=== PATIENT | female | born 1975 | race Caucasian/White ===

== ENCOUNTER 2017-05-02 02:30 | Emergency (ER) | payer MEDICARE, BC ==
[~2017-05-02] VITALS: Ht 170.2 cm; Wt 137.5 kg
[~2017-05-02 02:30] MED LIST: ATEN-51 PO; CIPR500T4 PO; DULO20CA43 PO; FIORICET PO; HYDR-3498 PO; HYDR-762 PO; IBUP-1542 PO; IBUP800T25 PO; ONDA4TAB8 PO; SYN75 PO
[2017-05-02 02:33] VITALS: Ht 170.2 cm; Wt 137.5 kg
--- NOTE | 2017-05-02 04:31 | ERD ---
ER Documentation Chief Complaint Date/Time DATE: 05/02/17 TIME: 04:29 Chief Complaint Insect bites HPI Patient is a 41-year-old female with no medical problems who presents with "bug bites". The patient says that she was in [place] Wednesday through and noticed the bug bites on . She says they are itchy. They are on the bilateral lower extremities. She felt nausea today as well. She has no fevers. She tried Benadryl by mouth and putting alcohol on the lesions. Upon review of old medical records she has multiple visits to the ER since 2013. She said that her primary doctor is Dr. Arroyo in [place]. ROS All systems reviewed and are negative except as per history of present illness. Medications Home Meds Active Scripts Ondansetron Hcl* (Zofran*) 4 Mg Tablet, 4 MG PO Q6H for NAUSEA AND/OR VOMITING, #15 TAB Prov:CHANO GUZMÁN PA-C 03/13/16 Ibuprofen* (Motrin*) 600 Mg Tab, 600 MG PO Q6, #30 TAB Prov:CHANO GUZMÁN PA-C 03/13/16 Hydrocodone Bit-Acetaminophen* ([place]*) 10-325 Mg Tablet, 1 TAB PO Q6 Y for PAIN , #10 TAB Prov:CHANO GUZMÁN PA-C 03/13/16 Acetamin/Butalbital/Caffeine* (Fioricet*) 1 Tab Tab, 1 TAB PO Q4H Y for PAIN LEVEL 1-5, #15 TAB Prov:ZENA SANTANA PA-C 10/15/15 Hydrocodone Bit-Acetaminophen* ([place]*) 5-325 Mg Tab, 1 TAB PO Q6 Y for PAIN, # 7 TAB Prov:VONDA MCNALLYC 08/23/15 Ibuprofen* (Motrin*) 800 Mg Tab, 800 MG PO Q6H Y for PAIN AND OR ELEVATED TEMP, #30 TAB Prov:CATHY AMBROSE NP 08/23/15 Hydrocodone Bit-Acetaminophen* ([place]*) 5-325 Mg Tab, 1 TAB PO Q6 Y for PAIN, # 20 TAB Prov:JESSICA SILVA NP 07/24/15 Ciprofloxacin Hcl* (Ciprofloxacin Hcl*) 500 Mg Tablet, 500 MG PO BID for 7 Days , TAB Prov:JESSICA SILVA TORREZ TChristiane GONGORA 07/24/15 Ibuprofen* (Ibuprofen*) 800 Mg Tab, 800 MG PO Q6H Y for PAIN, #30 TAB Prov:CARMEN CHARLES PA-C 05/23/15 Hydrocodone Bit-Acetaminophen* ([place]*) 5-325 Mg Tab, 1 TAB PO Q4H Y for PAIN, # 20 TAB Prov:CARMEN CHARLES PA-C 05/23/15 Reported Medications Atenolol* (Atenolol*) Unknown Strength Tablet, PO DAILY, TAB 07/24/15 Levothyroxine Sodium* (Synthroid*) Unknown Strength Tablet, PO AC BREAKFAST, TAB 07/24/15 Duloxetine Hcl* (Cymbalta*) Unknown Strength Capsule.dr, PO DAILY, CAP 07/24/15 Allergies Allergies: Coded Allergies: Penicillins (Verified Allergy, Unknown, rash, 05/20/14) clindamycin (Verified Allergy, Unknown, rash, 05/20/14) PMhx/Soc Medical and Surgical Hx: pt denies Medical Hx, pt denies Surgical Hx History of Surgery: Yes (cholecystectomy, gastric bypass) Anesthesia Reaction: No Hx Neurological Disorder: No Hx Respiratory Disorders: No Hx Cardiac Disorders: Yes (htn) Hx Psychiatric Problems: Yes (depression) Hx Miscellaneous Medical Probl: Yes (hypothyroid) Hx Alcohol Use: No Hx Substance Use: No Hx Tobacco Use: No Smoking Status: Never smoker FmHx Family History: diabetes Physical Exam Vitals Vital Signs Date Time Temp Pulse Resp B/P Pulse Ox O2 Delivery O2 Flow Rate FiO2 05/02/17 02:33 98.9 85 20 127/81 97 Physical Exam Const: No acute distress Head: Atraumatic Eyes: Normal Conjunctiva ENT: Normal External Ears, Nose and Mouth. Neck: Full range of motion..~ No meningismus. Resp: Clear to auscultation bilaterally Cardio: Regular rate and rhythm, no murmurs Abd: Soft, non tender, non distended. Normal bowel sounds Skin: 0.5 x 0.5 cm lesions to the lower extremities bilaterally with erythema and blanching, consistent with bug bites Back: No midline or flank tenderness Ext: No cyanosis, or edema Neur: Awake and alert Psych: Normal Mood and Affect Procedures/MDM Patient is a 41-year-old female with no medical problems who presents with bug bites to the lower extremities bilaterally. They appear to be mosquito bites. The patient will be given a prescription for hydrocortisone cream. I do not believe she requires further workup or admission the hospital at this time. There is no sign of infection. The patient can return for any worsening symptoms. She should follow-up with her primary doctor within 1 week. Departure Diagnosis: Primary Impression: Bug bites Encounter type: initial encounter Qualified Code: W57.XXXA - Bug bite, initial encounter Condition: Fair Patient Instructions: Insect Bites and Stings Referrals: Dr. Arroyo Additional Instructions: Call your primary care doctor TOMORROW for an appointment during the next 1 WEEK.Tell the nitro worker that you were referred from this facility.See the doctor sooner or return here if your condition worsens before your appointment time. ROSELYN ANDREWS MD May 02, 2017 04:31
== END 2017-05-02 03:30 | disposition home or self-care (01) ==
LOC: FTE 02:30
DX: S80.861A Insect bite (nonvenomous), right lower leg, initial encounter (principal); S80.862A Insect bite (nonvenomous), left lower leg, initial encounter; E03.9 Hypothyroidism, unspecified; I10 Essential (primary) hypertension; W57.XXXA Bitten or stung by nonvenomous insect and other nonvenomous arthropods, initial encounter; Y92.9 Unspecified place or not applicable
CPT/HCPCS: 99282

== ENCOUNTER 2017-05-24 11:19 | Emergency (ER) | payer MEDICARE, BC ==
[~2017-05-24] VITALS: Ht 152.4 cm; Wt 180.0 kg
[2017-05-24 11:21] VITALS: Ht 152.4 cm; Wt 180.0 kg
[2017-05-24] MEDS ORDERED: KET2CR15 TOP (11:41)
[2017-05-24] MEDS ORDERED: SULF1TAB31 PO (11:41)
--- NOTE | 2017-05-24 12:52 | ERD ---
ER Documentation Chief Complaint Date/Time DATE: 05/24/17 TIME: 12:51 Chief Complaint possible small abd abcess HPI 41-year-old female presents with a lesion on her left abdominal wall for the past 3 months. Patient states that it is starting to hurt rating at 4 out of 10. Denies any fevers. ROS All systems reviewed and are negative except as per history of present illness. Medications Home Meds Active Scripts Ketoconazole* (Ketoconazole* 2% Cream (15gm)) 1 Applic Cr, 1 APPLIC TOP BID for 7 Days, TUB Prov:VONDA MCNALLY PA-C 05/24/17 Sulfamethoxazole/Trimethoprim* (Bactrim Ds* Tablet) 1 Each Tablet, 1 TAB PO BID , #14 TAB Prov:VONDA MCNALLY PA-C 05/24/17 Ondansetron Hcl* (Zofran*) 4 Mg Tablet, 4 MG PO Q6H for NAUSEA AND/OR VOMITING, #15 TAB Prov:CHANO GUZMÁN PA-C 03/13/16 Ibuprofen* (Motrin*) 600 Mg Tab, 600 MG PO Q6, #30 TAB Prov:CHANO GUZMÁN PA-C 03/13/16 Hydrocodone Bit-Acetaminophen* ([place]*) 10-325 Mg Tablet, 1 TAB PO Q6 Y for PAIN , #10 TAB Prov:CHANO GUZMÁNC 03/13/16 Acetamin/Butalbital/Caffeine* (Fioricet*) 1 Tab Tab, 1 TAB PO Q4H Y for PAIN LEVEL 1-5, #15 TAB Prov:ZENA SANTANA PA-C 10/15/15 Hydrocodone Bit-Acetaminophen* ([place]*) 5-325 Mg Tab, 1 TAB PO Q6 Y for PAIN, # 7 TAB Prov:VONDA MCNALLY PA-C 08/23/15 Ibuprofen* (Motrin*) 800 Mg Tab, 800 MG PO Q6H Y for PAIN AND OR ELEVATED TEMP, #30 TAB Prov:CATHY AMBROSE NP 08/23/15 Hydrocodone Bit-Acetaminophen* ([place]*) 5-325 Mg Tab, 1 TAB PO Q6 Y for PAIN, # 20 TAB Prov:JESSICA SILVA [employer]. [employer] 07/24/15 Ciprofloxacin Hcl* (Ciprofloxacin Hcl*) 500 Mg Tablet, 500 MG PO BID for 7 Days , TAB Prov:JESSICA SILVA SHAN [place] [employer] 07/24/15 Ibuprofen* (Ibuprofen*) 800 Mg Tab, 800 MG PO Q6H Y for PAIN, #30 TAB Prov:CARMEN CHARLES PA-C 05/23/15 Hydrocodone Bit-Acetaminophen* ([place]*) 5-325 Mg Tab, 1 TAB PO Q4H Y for PAIN, # 20 TAB Prov:CARMEN CHARLES PA-C 05/23/15 Reported Medications Atenolol* (Atenolol*) Unknown Strength Tablet, PO DAILY, TAB 07/24/15 Levothyroxine Sodium* (Synthroid*) Unknown Strength Tablet, PO AC BREAKFAST, TAB 07/24/15 Duloxetine Hcl* (Cymbalta*) Unknown Strength Capsule.dr, PO DAILY, CAP 07/24/15 Allergies Allergies: Coded Allergies: Penicillins (Verified Allergy, Unknown, rash, 05/20/14) clindamycin (Verified Allergy, Unknown, rash, 05/20/14) PMhx/Soc History of Surgery: No Anesthesia Reaction: No Hx Neurological Disorder: No Hx Respiratory Disorders: No Hx Cardiac Disorders: No Hx Psychiatric Problems: No Hx Miscellaneous Medical Probl: No Hx Alcohol Use: No Hx Substance Use: No Hx Tobacco Use: No Smoking Status: Never smoker Physical Exam Vitals Vital Signs Date Time Temp Pulse Resp B/P Pulse Ox O2 Delivery O2 Flow Rate FiO2 05/24/17 11:21 98.1 90 18 128/83 99 Physical Exam Const: WD.WN Head: Atraumatic Eyes: Normal Conjunctiva ENT: Normal External Ears, Nose and Mouth. Neck: Full range of motion..~ No meningismus. Resp: Clear to auscultation bilaterally Cardio: Regular rate and rhythm, no murmurs Abd: Soft, non tender, non distended. Normal bowel sounds Skin: Erythematous lesion on the left quadrant there is no evidence of induration, warmth or Back: No midline or flank tenderness Ext: No cyanosis, or edema Neur: Awake and alert Psych: Normal Mood and Affect Procedures/MDM 41-year-old female presents to the emergency department with a skin lesion there was no evidence of abscess or cellulitis. Patient was given instructions to follow-up with a junior recruiter. Discussed return to the ER for worsening symptoms. She understands and agrees this plan Departure Diagnosis: Primary Impression: Skin lesion Condition: Stable Patient Instructions: Fungal Infection, Skin [General] Additional Instructions: FOLLOW UP WITH YOUR PRIMARY CARE PHYSICIAN TOMORROW.Return to this facility if you are not improving as expected. Take all medicines as directed. Return to this facility if you are not improving as expected. VONDA MCNALLY PA-C May 24, 2017 12:52
== END 2017-05-24 12:07 | disposition home or self-care (01) ==
LOC: FTE 11:19
DX: L98.9 Disorder of the skin and subcutaneous tissue, unspecified (principal)
CPT/HCPCS: 99283

== ENCOUNTER 2017-07-03 03:45 | Emergency (ER) | payer MEDICARE, BC ==
[~2017-07-03] VITALS: Ht 170.2 cm; Wt 133.0 kg
[~2017-07-03 03:45] MED LIST changes: +KET2CR15 TOP; +SULF1TAB31 PO
[2017-07-03 03:48] VITALS: Ht 170.2 cm; Wt 133.0 kg
[2017-07-03] MEDS ORDERED: ONDANSETRON 4 MG INJ IV STA (04:24)
[2017-07-03] MEDS ORDERED: SOD CHLORIDE 0.9% 1,000 ML IV STA (04:24)
[2017-07-03] MEDS ORDERED: LORAZEPAM 0.5 MG TAB PO ONE (04:30)
[2017-07-03 04:43] LABS: URINE BLOOD (Dip) POC Negative (NEGATIVE)
[2017-07-03 05:14] LABS: BASOPHILS % 0.2 % (0.0-2.0); EOSINOPHILS % 0.4 % (0.0-7.0); HEMATOCRIT 39.8 % (37.0-47.0); HEMOGLOBIN 11.7 g/dl (12.0-16.0); MEAN CORPUSCULAR HEMOGLOBIN 23.9 pg (29.0-33.0); MEAN CORPUSCULAR HGB CONC 29.4 g/dl (32.0-37.0); MEAN CORPUSCULAR VOLUME 81.2 fl (82.0-101.0); MEAN PLATELET VOLUME 11.1 fl (7.4-10.4); MONOCYTE # 0.7 10^3/ul (0.3-0.9); MONOCYTES % 6.6 % (0.0-11.0); NEUTROPHIL # 8.3 10^3/ul (1.6-7.5); NEUTROPHILS % 74.4 % (39.0-77.0); PLATELET COUNT 401 10^3/UL (140-415); RED CELL DISTRIBUTION WIDTH 15.9 % (11.5-14.5); WHITE BLOOD COUNT 11.2 10^3/ul (4.8-10.8)
[2017-07-03 05:37] LABS: ALANINE AMINOTRANSFERASE 31 IU/L (13-69); ALBUMIN 3.8 g/dl (3.3-4.9); ALBUMIN/GLOBULIN RATIO 0.92; ALKALINE PHOSPHATASE 144 IU/L (42-121); ANION GAP 13 (8-16); ASPARTATE AMINO TRANSFERASE 21 IU/L (15-46); BILIRUBIN,INDIRECT 0.1 mg/dl (0-1.1); BILIRUBIN,TOTAL 0.1 mg/dl (0.2-1.3); BLOOD UREA NITROGEN 17 mg/dl (7-20); CALCIUM 9.4 mg/dl (8.4-10.2); CARBON DIOXIDE 25 mmol/L (21-31); CHLORIDE 109 mmol/L (97-110); CREATININE 0.83 mg/dl (0.44-1.00); GLUCOSE 96 mg/dl (70-220); POTASSIUM 4.2 mmol/L (3.5-5.1); SODIUM 143 mmol/L (135-144); TOTAL PROTEIN 7.9 g/dl (6.1-8.1)
[2017-07-03] MEDS ORDERED: LORA-441 PO (05:49)
--- NOTE | 2017-07-03 05:56 | ERD ---
ER Documentation Chief Complaint Chief Complaint dizziness, nausea HPI 42-year-old woman complains of dizziness for a few hours, as well as anxiety. She states she has a history of anxiety and has felt like this in the past. She denies fevers or chills, no chest pain or shortness of breath, no headache or blurry vision. Patient denies dysuria. ROS All systems reviewed and are negative except as per history of present illness. Medications Home Meds Active Scripts Lorazepam* (Ativan*) 0.5 Mg Tablet, 0.5 MG PO Q8 for ANXIETY, #10 TAB Prov:DERIAN BLACKWOOD MD 07/03/17 Ketoconazole* (Ketoconazole* 2% Cream (15gm)) 1 Applic Cr, 1 APPLIC TOP BID for 7 Days, TUB Prov:VONDA MCNALLY PA-C 05/24/17 Sulfamethoxazole/Trimethoprim* (Bactrim Ds* Tablet) 1 Each Tablet, 1 TAB PO BID , #14 TAB Prov:VONDA MCNALLY PA-C 05/24/17 Ondansetron Hcl* (Zofran*) 4 Mg Tablet, 4 MG PO Q6H for NAUSEA AND/OR VOMITING, #15 TAB Prov:CHANO GUZMÁN PA-C 03/13/16 Ibuprofen* (Motrin*) 600 Mg Tab, 600 MG PO Q6, #30 TAB Prov:CHANO GUZMÁN PA-C 03/13/16 Hydrocodone Bit-Acetaminophen* ([place]*) 10-325 Mg Tablet, 1 TAB PO Q6 Y for PAIN , #10 TAB Prov:CHANO GUZMÁN PA-C 03/13/16 Acetamin/Butalbital/Caffeine* (Fioricet*) 1 Tab Tab, 1 TAB PO Q4H Y for PAIN LEVEL 1-5, #15 TAB Prov:ZENA SANTANA PA-C 10/15/15 Hydrocodone Bit-Acetaminophen* ([place]*) 5-325 Mg Tab, 1 TAB PO Q6 Y for PAIN, # 7 TAB Prov:VODNA MCNALLY PA-C 08/23/15 Ibuprofen* (Motrin*) 800 Mg Tab, 800 MG PO Q6H Y for PAIN AND OR ELEVATED TEMP, #30 TAB Prov:HALIECATHY X. TRIGONOMETRY TUTOR 08/23/15 Hydrocodone Bit-Acetaminophen* ([place]*) 5-325 Mg Tab, 1 TAB PO Q6 Y for PAIN, # 20 TAB Prov:JESSICA SILVA TRIGONOMETRY TUTOR 07/24/15 Ciprofloxacin Hcl* (Ciprofloxacin Hcl*) 500 Mg Tablet, 500 MG PO BID for 7 Days , TAB Prov:JESSICA SILVA TRIGONOMETRY TUTOR 07/24/15 Ibuprofen* (Ibuprofen*) 800 Mg Tab, 800 MG PO Q6H Y for PAIN, #30 TAB Prov:CARMEN CHARLES PA-C 05/23/15 Hydrocodone Bit-Acetaminophen* ([place]*) 5-325 Mg Tab, 1 TAB PO Q4H Y for PAIN, # 20 TAB Prov:CARMEN CHRALES PA-C 05/23/15 Reported Medications Atenolol* (Atenolol*) Unknown Strength Tablet, PO DAILY, TAB 07/24/15 Levothyroxine Sodium* (Synthroid*) Unknown Strength Tablet, PO AC BREAKFAST, TAB 07/24/15 Duloxetine Hcl* (Cymbalta*) Unknown Strength Capsule.dr, PO DAILY, CAP 07/24/15 Allergies Allergies: Coded Allergies: Penicillins (Verified Allergy, Unknown, rash, 05/20/14) clindamycin (Verified Allergy, Unknown, rash, 05/20/14) PMhx/Soc Anxiety History of Surgery: Yes (gastric bypass, gallbladder) Anesthesia Reaction: No Hx Neurological Disorder: No Hx Respiratory Disorders: No Hx Cardiac Disorders: No Hx Psychiatric Problems: No Hx Miscellaneous Medical Probl: Yes (hypothyroidism) Hx Alcohol Use: No Hx Substance Use: No Hx Tobacco Use: No Smoking Status: Never smoker FmHx Family History: No diabetes Physical Exam Vitals Vital Signs Date Time Temp Pulse Resp B/P Pulse Ox O2 Delivery O2 Flow Rate FiO2 07/03/17 05:25 98.0 86 18 127/72 100 Room Air 07/03/17 03:48 98.8 99 20 127/76 100 Physical Exam GENERAL: Well-developed, well-nourished, well-hydrated, appears anxious HEENT: Moist mucous membranes, pink conjunctiva, no cervical spine tenderness or step-off deformities, no goiter, no jaundice or icterus, extraocular movements intact without pain. No submandibular induration, and no pharyngeal erythema NEURO: Alert and oriented 3, cranial nerves II through XII intact bilaterally, pupils equal round reactive to light, no focal deficits or facial asymmetry, sensation intact distally Strength 5/5 in upper and lower extremities bilaterally CARDIAC: Tachycardic and regular no murmurs rubs or gallops LUNGS: Clear bilaterally no wheezing crackles or stridor ABDOMEN: Soft nontender, no guarding, no rigidity, no rebound, no psoas sign no obturator sign. Normoactive bowel sounds SKIN: Warm and dry to touch, no abrasions, contusions, or hematomas, no lacerations, no ecchymosis, no target lesions, and without ulcers EXTREMITIES: No clubbing cyanosis or edema, calves are bilaterally symmetrical, no Homans sign, no popliteal cord sign. Distal pulses equal and bilateral PSYCH: Anxious Result Diagram: 07/03/17 0435 Results 24 hrs Laboratory Tests Test 07/03/17 04:35 07/03/17 04:40 White Blood Count 11.210^3/ul Red Blood Count 4.9010^6/ul Hemoglobin 11.7g/dl Hematocrit 39.8% Mean Corpuscular Volume 81.2fl Mean Corpuscular Hemoglobin 23.9pg Mean Corpuscular Hemoglobin Concent 29.4g/dl Red Cell Distribution Width 15.9% Platelet Count 62929^3/UL Mean Platelet Volume 11.1fl Neutrophils % 74.4% Lymphocytes % 18.0% Monocytes % 6.6% Eosinophils % 0.4% Basophils % 0.2% Nucleated Red Blood Cells % 0.0/100WBC Neutrophils # 8.310^3/ul Lymphocytes # 2.010^3/ul Monocytes # 0.710^3/ul Eosinophils # 0.010^3/ul Basophils # 0.010^3/ul Nucleated Red Blood Cells # 0.010^3/ul Bedside Urine pH (LAB) 6.0 Bedside Urine Protein (LAB) Trace Bedside Urine Glucose (UA) Negative Bedside Urine Ketones (LAB) Negative Bedside Urine Blood Negative Bedside Urine Nitrite (LAB) Negative Bedside Urine Leukocyte Esterase (L Negative Current Medications Medications (Trade) Dose Ordered Sig/Lyssa Route PRN Reason Start Time Stop Time Status Last Admin Dose Admin Sodium Chloride (NS) 1,000 ml @ 1,000 mls/hr Q1H STAT IV 07/03/17 04:24 07/03/17 05:23 DC 07/03/17 04:39 Ondansetron HCl (Zofran Inj) 4 mg ONCE STAT IV 07/03/17 04:24 07/03/17 04:26 DC 07/03/17 04:40 Lorazepam (Ativan) 0.5 mg ONCE ONCE PO 07/03/17 04:30 07/03/17 04:31 DC 07/03/17 04:40 Procedures/MDM IV line was established patient was placed on cardiac cath rn rhythm strip revealed a sinus tachycardia at 110 bpm with upright P and T waves. Patient was afebrile I administered 1 L normal saline intravenously, Zofran 4 mg IV, and lorazepam 0.5 mg p.o. with good effect. EKG performed, read by me: 89 bpm, normal sinus rhythm, normal axis, no acute ST segment changes, narrow QRS complex, with good R-wave progression in precordial leads. CBC and electrolytes were normal, liver function tests normal, troponin negative. test was negative and urine analysis was negative for infection. Differential diagnoses considered, included but not limited to acute coronary syndrome, pulmonary embolism, aortic dissection, abdominal aortic aneurysm, sepsis, stroke, meningitis, encephalitis, pneumonia, appendicitis, cholecystitis , bowel obstruction, pyelonephritis, nephrolithiasis, cystitis, as well as metabolic, hematologic, and electrolyte abnormalities. As well as abscess, cellulitis, fractures, and dislocations. Patient feels much better at this time, and vital signs are normal, symptoms have improved. I did give strict instructions to return to the ED if symptoms continue or worsen, patient will otherwise follow-up with primary care physician. Patient understood instructions and agreed to plan. Disclaimer: Inadvertent spelling and grammatical errors are likely due to EHR/ dictation software use and do not reflect on the overall quality of patient care. Also, please note that the electronic time recorded on this note does not necessarily reflect the actual time of the patient encounter. Departure Diagnosis: Primary Impression: Dizziness Additional Impression: Acute anxiety Condition: Good Patient Instructions: Dizziness, Unk Cause DERIAN BLACKWOOD MD Jul 03, 2017 05:56
[2017-07-03 05:57] LABS: TROPONIN-I < 0.012 ng/ml (0.00-0.12)
[2017-07-03 06:20] VITALS: BP 130/85; RESP 16; TEMP 98.1
[2017-07-03 06:21] VITALS: PULSE 89
[2017-07-03] MEDS ORDERED: ERGO2000 PO (06:31)
[2017-07-03] MEDS ORDERED: LEVO150T67 PO (06:31)
== END 2017-07-03 06:22 | disposition home or self-care (01) ==
LOC: E/R 03:45
DX: F41.9 Anxiety disorder, unspecified (principal); E03.9 Hypothyroidism, unspecified; R40.2142 Coma scale, eyes open, spontaneous, at arrival to emergency department; R40.2252 Coma scale, best verbal response, oriented, at arrival to emergency department; R40.2362 Coma scale, best motor response, obeys commands, at arrival to emergency department
CPT/HCPCS: 36415; 80053; 81003; 83690; 84484; 85025; 93005; 96361; 96374; 96375; 99284; J2405; J7030

== ENCOUNTER 2017-07-11 22:48 | Emergency (ER) | payer MEDICARE, BC ==
[~2017-07-11] VITALS: Ht 170.2 cm; Wt 134.7 kg
[~2017-07-11 22:48] MED LIST changes: -ATEN-51 PO; -CIPR500T4 PO; -DULO20CA43 PO; +ERGO2000 PO; -FIORICET PO; -HYDR-3498 PO; -HYDR-762 PO; -IBUP-1542 PO; -IBUP800T25 PO; -KET2CR15 TOP; +LEVO150T67 PO; +LORA-441 PO; -ONDA4TAB8 PO; -SULF1TAB31 PO; -SYN75 PO
[2017-07-11 22:52] VITALS: Ht 170.2 cm; Wt 134.7 kg
[2017-07-11] MEDS ORDERED: ONDANSETRON 4 MG INJ IV STA (23:04)
[2017-07-11] MEDS ORDERED: SOD CHLORIDE 0.9% 1,000 ML IV STA (23:04)
[2017-07-11] MEDS ORDERED: HYDROmorphONE 0.5 MG/0.5 ML SYG IV STA (23:04)
--- NOTE | 2017-07-11 23:48 | ERD ---
ER Documentation Chief Complaint Chief Complaint right upper back pain radiating to right chest x 4 days HPI This is a 42-year-old female who is an employee of [employer] cystectomy and gastric bypass presenting to the emergency department complaining of thoracic back pain that radiates to her epigastric region for the past 4 days. Rates the pain 7 out of 10, increased to she eats meals. She associates it with nausea. Patient denies any fevers, vomiting, diarrhea. ROS All systems reviewed and are negative except as per history of present illness. Medications Home Meds Active Scripts Ondansetron (Ondansetron Odt) 4 Mg Tab.rapdis, 8 MG PO Q6H Y for NAUSEA AND/OR VOMITING, #30 TAB Prov:VONDA MCNALLY PA-C 07/12/17 Hydrocodone/Acetaminophen ([place] 5-325 Tablet) 1 Each Tablet, 1 TAB PO Q6H Y for PAIN, #30 TAB Prov:VONDA MCNALLY PA-C 07/12/17 Famotidine* (Pepcid*) 20 Mg Tablet, 20 MG PO DAILY, #20 TAB Prov:VONDA MCNALLY PA-C 07/12/17 Hydrocodone/Acetaminophen ([place] 5-325 Tablet) 1 Each Tablet, 1 TAB PO Q6H Y for PAIN, #20 TAB Prov:VONDA MCNALLY PA-C 07/12/17 Lorazepam* (Ativan*) 0.5 Mg Tablet, 0.5 MG PO Q8 for ANXIETY, #10 TAB Prov:DERIAN BLACKWOOD MD 07/03/17 Reported Medications Ergocalciferol (Vitamin D2) (VITAMIN D2) 2,000 Unit Tablet, 2000 UNIT PO, TAB 07/03/17 Levothyroxine Sodium* (Levothyroxine Sodium*) 150 Mcg Tablet, 300 MCG PO BEFORE BREAKFAST, #30 TAB 07/03/17 Allergies Allergies: Coded Allergies: Penicillins (Unverified Allergy, Unknown, rash, 07/03/17) clindamycin (Unverified Allergy, Unknown, rash, 07/03/17) PMhx/Soc History of Surgery: Yes (gastric bypass, gallbladder) Anesthesia Reaction: No Hx Neurological Disorder: No Hx Respiratory Disorders: No Hx Cardiac Disorders: No Hx Psychiatric Problems: No Hx Miscellaneous Medical Probl: Yes (hypothyroidism) Hx Alcohol Use: No Hx Substance Use: No Hx Tobacco Use: No Smoking Status: Never smoker Physical Exam Vitals Vital Signs Date Time Temp Pulse Resp B/P Pulse Ox O2 Delivery O2 Flow Rate FiO2 07/11/17 22:52 99.1 96 20 174/81 99 Physical Exam GENERAL: well-developed/well-nourished, in no apparent distress, non-toxic appearing HENT: NC/AT, moist mucous membranes EYES: Conjunctiva normal NECK: Supple, no lymphadenopathy PULM: CTA bilaterally, no rales, rhonchi, or wheezing heard CV: Normal S1S2, RRR, good capillary refill GI: Soft, non-distended, tender to palpation epigastric Normal bowel sounds, no masses or organomegaly felt on exam No gross peritonitis, no bruits Negative Rovsing, negative [place], negative McBurney's point, Negative CVAT BACK: No masses EXT: No clubbing, cyanosis, or edema NEURO: Alert and Orientated SKIN: Intact, normal turgor PSYCH: Normal mood and mentation Result Diagram: 07/11/17 2340 07/11/17 2340 Results 24 hrs Laboratory Tests Test 07/11/17 23:40 White Blood Count 6.710^3/ul Red Blood Count 4.3210^6/ul Hemoglobin 10.4g/dl Hematocrit 35.2% Mean Corpuscular Volume 81.5fl Mean Corpuscular Hemoglobin 24.1pg Mean Corpuscular Hemoglobin Concent 29.5g/dl Red Cell Distribution Width 15.8% Platelet Count 51031^3/UL Mean Platelet Volume 11.2fl Neutrophils % 56.8% Lymphocytes % 33.6% Monocytes % 7.9% Eosinophils % 1.3% Basophils % 0.3% Nucleated Red Blood Cells % 0.0/100WBC Neutrophils # 3.810^3/ul Lymphocytes # 2.210^3/ul Monocytes # 0.510^3/ul Eosinophils # 0.110^3/ul Basophils # 0.010^3/ul Nucleated Red Blood Cells # 0.010^3/ul Prothrombin Time 12.9Sec Prothrombin Time Ratio 1.0 INR International Normalized Ratio 0.97 Activated Partial Thromboplast Time 28.1Sec Urine Color YELLOW Urine Clarity CLEAR Urine pH 5.0 Urine Specific [place] 1.021 Urine Ketones NEGATIVEmg/dL Urine Nitrite NEGATIVEmg/dL Urine Bilirubin NEGATIVEmg/dL Urine Urobilinogen 2+mg/dL Urine Leukocyte Esterase NEGATIVELeu/ul Urine Hemoglobin NEGATIVEmg/dL Urine Glucose NEGATIVEmg/dL Urine Total Protein NEGATIVEmg/dl Sodium Level 144mmol/L Potassium Level 4.3mmol/L Chloride Level 112mmol/L Carbon Dioxide Level 26mmol/L Anion Gap 10 Blood Urea Nitrogen 12mg/dl Creatinine 0.88mg/dl Glucose Level 89mg/dl Calcium Level 8.8mg/dl Total Bilirubin 0.2mg/dl Direct Bilirubin 0.00mg/dl Indirect Bilirubin 0.2mg/dl Aspartate Amino Transf (AST/SGOT) 16IU/L Alanine Aminotransferase (ALT/SGPT) 25IU/L Alkaline Phosphatase 115IU/L Troponin I Pending Total Protein 6.8g/dl Albumin 3.3g/dl Globulin 3.50g/dl Albumin/Globulin Ratio 0.94 Lipase 130U/L Current Medications Medications (Trade) Dose Ordered Sig/Lyssa Route PRN Reason Start Time Stop Time Status Last Admin Dose Admin Sodium Chloride (NS) 1,000 ml @ 1,000 mls/hr Q1H STAT IV 07/11/17 23:04 07/12/17 00:03 DC 07/11/17 23:56 Ondansetron HCl (Zofran Inj) 4 mg ONCE STAT IV 07/11/17 23:04 07/11/17 23:07 DC 07/11/17 23:56 Hydromorphone HCl (Dilaudid) 0.5 mg ONCE STAT IV 07/11/17 23:04 07/11/17 23:07 DC 07/11/17 23:56 Procedures/MDM This is a 42-year-old female who is an employee of [employer] cystectomy and gastric bypass presenting to the emergency department complaining of thoracic back pain that radiates to her epigastric region for the past 4 days. Likely gastritis, thoracic strain. No evidence of acute abdomen. In the ED, patient was given 1 L of fluids, Dilaudid and Zofran. I have reassessed her and she feels better patient is stable to be discharged home to follow-up with her primary care physician. Discussed return to the ER for any worsening signs or symptoms patient understands and agrees with plan CT abd & pelvis without contrast: 1. Status post Robinson-en-Y gastric bypass without evidence of complications. Bowel loops are decompressed. Normal appendix. 2. Hypodense lesions in the liver and spleen are unchanged since CT July. They are incompletely characterized on noncontrast CT. However, stability in size favors benign lesions. Abd US: 1. Status post cholecystectomy. Negative for evidence of biliary obstruction. 2. Hypodense liver lesion seen on same day CT is not seen with ultrasound that is likely technical. EKG: read and signed off by myself and Rate/Rhythm: Normal Sinus Rhythm 76bpm QRS, ST, T-waves: No changes consistent w/ acute ischemia Impression: No evidence of ischemia or arrhythmia Departure Diagnosis: Primary Impression: Epigastric pain Additional Impression: Thoracic myofascial strain Condition: Stable VONDA MCNALLY PA-C Jul 11, 2017 23:48
--- NOTE | 2017-07-12 00:36 | RADRPT ---
PROCEDURE: CT ABDOMEN AND PELVIS WITHOUT CONTRAST CLINICAL INDICATION: 42 years of age, female . Abdominal pain. TECHNIQUE: CT of the abdomen and pelvis was performed without intravenous contrast. Oral contrast wa s not administered prior to the examination. Coronal and sagittal reformatted images were obtained from the axial source images. Images were revi ewed on a high-resolution PACS workstation. Dose information: Based on a 32 cm phantom, the estimated radiation dose (CTDIvol mGy) for each seri es in this exam is 23. The estimated cumulative dose (DLP mGy-cm) is 1454. One or more of the following dose reduction techniques were used: - Automated exposure control. - Adjustment of the mA and/or kV according to patient size. - Use of iterative reconstruction technique. COMPARISON: July 24, 2015 FINDINGS: In the absence of intravenous contrast, the study constitutes a limited assessment of the solid orga ns, bowel and vessels. LUNG BASES: Normal noncontrast appearance. ABDOMEN/PELVIS: Liver: There is a 2.4 cm hypodense lesion in the inferior right lobe segment 6 that is unchanged fro m July 14, 2015 and likely benign (/). It is incompletely characterized on noncontrast CT. Rig ht hepatic lobe is long and measures 20 cm that is unchanged and may be due to Katerina's lobe. Gallbladder: Status post cholecystectomy. Bile ducts: No intrahepatic or extrahepatic biliary duct dilatation. Spleen: 3.7 cm hypodense lesion in the superior spleen is unchanged from July 24, 2015 and likel y benign. Spleen is normal size with multiple accessory spleens. Pancreas: Normal noncontrast appearance. Adrenal glands: Normal noncontrast appearance. Kidneys and ureters: Normal noncontrast appearance. Negative for urinary calculi or hydronephrosis. Aorta and IVC: Normal noncontrast appearance. Lymph nodes: Normal noncontrast appearance. Gastrointestinal tract: Status post ante colic Robinson-en-Y gastric bypass with the expected appearance . Negative for evidence of complications. JJ anastomosis is in the left mid abdomen. Appendix: Normal Bladder: Normal noncontrast appearance. Pelvic Organs: The uterus and adnexa are unremarkable. Peritoneal cavity: No free fluid or free intraperitoneal air. Abdominal wall: Normal noncontrast appearance. BONES: Musculoskeletal: Mild degenerative changes in spine. Scattered benign hemangiomas in the spine. No s uspicious bone lesions. IMPRESSION: 1. Status post Robinson-en-Y gastric bypass without evidence of complications. Bowel loops are decompre ssed. Normal appendix. 2. Hypodense lesions in the liver and spleen are unchanged since CT July 24, 2015. They are inco mpletely characterized on noncontrast CT. However, stability in size favors benign lesions. RPTAT: HCTS Valdez Gleason Physician Date Time Electronically viewed and signed by Valdez Gleason Physician on 07/12/2017 00:36 CS/
--- NOTE | 2017-07-12 00:39 | RADRPT ---
PROCEDURE: LIMITED ABDOMINAL ULTRASOUND OF GALL BLADDER CLINICAL INDICATION: 42 years of age, female. Right upper quadrant pain. TECHNIQUE: Multiple real-time longitudinal and transverse images of the gallbladder and the bile d ucts were acquired utilizing a curved array transducer. Images were reviewed on a high-resolution [facility] workstation. COMPARISON: CT abdomen and pelvis from the same day. FINDINGS: Pancreas: Visualized portions normal. Pancreatic tail is obscured by bowel gas. Liver appearance: Normal. Liver lesion seen on CT is not seen with ultrasound. Liver length: 19 cm Bile Ducts: No intrahepatic or extrahepatic biliary ductal dilatation. CBD: 0.47 cm. Gallbladder: Surgically absent. Main portal vein is patent with hepatopetal flow. Right kidney length: 10.1 cm. Right kidney appearance: Normal. Other: None. IMPRESSION: 1. Status post cholecystectomy. Negative for evidence of biliary obstruction. 2. Hypodense liver lesion seen on same day CT is not seen with ultrasound that is likely technical. RPTAT: HCTS Physician Gordy Date Time Electronically viewed and signed by Physician Gordy on 07/12/2017 00:39 /
--- NOTE | 2017-07-12 00:39 | RADRPT ---
PROCEDURE: LIMITED ABDOMINAL ULTRASOUND OF GALL BLADDER CLINICAL INDICATION: 42 years of age, female. Right upper quadrant pain. TECHNIQUE: Multiple real-time longitudinal and transverse images of the gallbladder and the bile d ucts were acquired utilizing a curved array transducer. Images were reviewed on a high-resolution [facility] workstation. COMPARISON: CT abdomen and pelvis from the same day. FINDINGS: Pancreas: Visualized portions normal. Pancreatic tail is obscured by bowel gas. Liver appearance: Normal. Liver lesion seen on CT is not seen with ultrasound. Liver length: 19 cm Bile Ducts: No intrahepatic or extrahepatic biliary ductal dilatation. CBD: 0.47 cm. Gallbladder: Surgically absent. Main portal vein is patent with hepatopetal flow. Right kidney length: 10.1 cm. Right kidney appearance: Normal. Other: None. IMPRESSION: 1. Status post cholecystectomy. Negative for evidence of biliary obstruction. 2. Hypodense liver lesion seen on same day CT is not seen with ultrasound that is likely technical. RPTAT: HCTS Physician Gordy Date Time Electronically viewed and signed by Physician Gordy on 07/12/2017 00:39 /
[2017-07-12] MEDS ORDERED: FAMO-96 PO (00:59)
[2017-07-12] MEDS ORDERED: HYDR-906 PO ×2 (00:59→01:03)
--- NOTE | 2017-07-12 00:59 | RADRPT ---
PROCEDURE: Chest. CLINICAL INDICATION: Chest pain. TECHNIQUE: 2 frontal views of the chest were obtained. COMPARISON: None. FINDINGS: The cardiac silhouette is magnified. The aortic arch is unremarkable. There is no focal consolidat ion, vascular congestion or pleural effusion. There is no pneumothorax. IMPRESSION: No evidence for active cardiopulmonary disease. .Fabio Camargo MD, MD Date Time Electronically viewed and signed by .Fabio Camargo MD, on 07/12/2017 00:59 .T/
[2017-07-12] MEDS ORDERED: ONDA4TAB14 PO (01:06)
[2017-07-12 01:35] VITALS: BP 114/71; PULSE 69; RESP 18; TEMP 98
== END 2017-07-12 01:35 | disposition home or self-care (01) ==
LOC: FTE 22:48
DX: R10.13 Epigastric pain (principal); S39.012A Strain of muscle, fascia and tendon of lower back, initial encounter; E03.9 Hypothyroidism, unspecified; X58.XXXA Exposure to other specified factors, initial encounter; Y92.9 Unspecified place or not applicable
CPT/HCPCS: 36415; 71010; 74176; 76705; 80053; 81003; 83690; 84484; 85025; 85610; 85730; 93005; 96361; 96374; 96375; 99285; J1170; J2405; J7030

== ENCOUNTER 2017-07-29 23:24 | Emergency (ER) | payer MEDICARE, BC ==
[~2017-07-29] VITALS: Ht 172.7 cm; Wt 131.0 kg
[~2017-07-29 23:24] MED LIST changes: +FAMO-96 PO; +HYDR-906 PO; +ONDA4TAB14 PO
[2017-07-29 23:31] VITALS: Ht 172.7 cm; Wt 131.0 kg
[2017-07-29] MEDS ORDERED: HYDR-906 PO (23:44)
[2017-07-29] MEDS ORDERED: PRED20TA PO (23:44)
[2017-07-30] MEDS ORDERED: predniSONE 20 MG TAB PO ONE
--- NOTE | 2017-07-30 00:34 | ERD ---
ER Documentation Chief Complaint Chief Complaint left hand pain x 7 days HPI 42-year-old female complaining of left hand pain. Patient states she has history of carpal tunnel and feels that her wrist is irritated and flaring up. Patient states it hurts to bend at the wrist. Has taken naproxen and ibuprofen with no alleviation. Right-hand dominant. Denies numbness or tingling to her distal hand. Describes as electric shock type pain and feels weak and cannot hold anything. Denies acute traumatic injury. ROS All systems reviewed and are negative except as per history of present illness. Medications Home Meds Active Scripts Prednisone* (Prednisone*) 20 Mg Tab, 40 MG PO DAILY for 4 Days, TAB Prov:ZENA SANTANA PA-C 07/29/17 Hydrocodone/Acetaminophen ([place] 5-325 Tablet) 1 Each Tablet, 1 TAB PO Q6H Y for PAIN, #7 TAB Prov:ZENA SANTANA PA-C 07/29/17 Ondansetron (Ondansetron Odt) 4 Mg Tab.rapdis, 8 MG PO Q6H Y for NAUSEA AND/OR VOMITING, #30 TAB Prov:VONDA MCNALLY PA-C 07/12/17 Hydrocodone/Acetaminophen ([place] 5-325 Tablet) 1 Each Tablet, 1 TAB PO Q6H Y for PAIN, #30 TAB Prov:VONDA MCNALLY PA-C 07/12/17 Famotidine* (Pepcid*) 20 Mg Tablet, 20 MG PO DAILY, #20 TAB Prov:VONDA MCNALLY PA-C 07/12/17 Hydrocodone/Acetaminophen ([place] 5-325 Tablet) 1 Each Tablet, 1 TAB PO Q6H Y for PAIN, #20 TAB Prov:VONDA MCNALLY PA-C 07/12/17 Lorazepam* (Ativan*) 0.5 Mg Tablet, 0.5 MG PO Q8 for ANXIETY, #10 TAB Prov:DERIAN BLACKWOOD MD 07/03/17 Reported Medications Ergocalciferol (Vitamin D2) (VITAMIN D2) 2,000 Unit Tablet, 2000 UNIT PO, TAB 07/03/17 Levothyroxine Sodium* (Levothyroxine Sodium*) 150 Mcg Tablet, 300 MCG PO BEFORE BREAKFAST, #30 TAB 07/03/17 Allergies Allergies: Coded Allergies: Penicillins (Unverified Allergy, Unknown, rash, 07/03/17) clindamycin (Unverified Allergy, Unknown, rash, 07/03/17) PMhx/Soc History of Surgery: Yes (Gastric Bypass,Cholecystectomy) Anesthesia Reaction: No Hx Neurological Disorder: No Hx Respiratory Disorders: No Hx Cardiac Disorders: No Hx Psychiatric Problems: No Hx Miscellaneous Medical Probl: Yes (Hypothyroidism) Hx Alcohol Use: No Hx Substance Use: No Hx Tobacco Use: No Smoking Status: Never smoker Physical Exam Vitals Vital Signs Date Time Temp Pulse Resp B/P Pulse Ox O2 Delivery O2 Flow Rate FiO2 07/29/17 23:31 98.7 100 20 131/81 99 Physical Exam GENERAL: The patient is well-appearing, well-nourished, in no acute distress CHEST: Clear to auscultation bilaterally. There are no rales, wheezes or rhonchi. HEART: Regular rate and rhythm. No murmurs, clicks, rubs or gallops. No S3 or S4. EXTREMITIES: Strength 5 out of 5 to bilateral upper extremities. Pulses intact. Normal ulnar radian and median nerve innervation. Normal movement of the left upper extremity. No deformities. NEUROLOGIC: Alert and oriented. Cranial nerves II through XII intact. Motor strength in all 4 extremities with 5 out of 5 strength. Sensation grossly intact. Normal speech and gait. Babinski negative. DTR 2+ throughout. SKIN: There is no apparent rash or petechiae. The skin is warm and dry. Results 24 hrs Current Medications Medications (Trade) Dose Ordered Sig/Lyssa Route PRN Reason Start Time Stop Time Status Last Admin Dose Admin Prednisone (Prednisone) 60 mg ONCE ONCE PO 07/30/17 00:00 07/30/17 00:01 DC 07/29/17 23:59 Procedures/MDM ER course: 60 mg prednisone given in ED. MDM: 42-year-old female complaining of pain to left wrist. I have low suspicion for acute fracture dislocation. I have low suspicion for neurovascular deficit. Patient's pain is likely associated with carpal tunnel inflammation and irritation. Has an appointment with her orthopedist Dr. Cross in 2 days and will likely get a hydrocortisone injection. I have low suspicion for foreign body. Patient is discharged with strict ER precautions and recommended to follow-up with primary care within 1-2 days for close evaluation. She is told if symptoms change or worsen to return to the ER immediately. All questions answered discharge. Departure Diagnosis: Primary Impression: Pain in wrist Condition: Stable Patient Instructions: Wrist Splint, Velcro Referrals: [facility] [place] Hours: Mon-Wed 9:00 AM - 5:00 PM Additional Instructions: FOLLOW UP WITH YOUR PRIMARY CARE PHYSICIAN TOMORROW.Return to this facility if you are not improving as expected. ZENA SANTANA PA-C Jul 30, 2017 00:34
== END 2017-07-30 00:03 | disposition home or self-care (01) ==
LOC: FTE 23:24
DX: M79.642 Pain in left hand (principal); E03.9 Hypothyroidism, unspecified
CPT/HCPCS: 99284; J7512

== ENCOUNTER 2017-08-28 07:14 | Emergency (ER) | payer MEDICARE, BC ==
[~2017-08-28] VITALS: Wt 127.0 kg
[~2017-08-28 07:14] MED LIST changes: +PRED20TA PO
--- NOTE | 2017-08-28 07:28 | ERD ---
ER Documentation Chief Complaint Chief Complaint COUGH/FEVER X 1 WEEK HPI 42-year-old female presents the emergency department complaining of cough and upper respiratory nasal congestion for approximately 1 week. Patient reports upper respiratory nasal congestion and a postnasal drip. She reports no fevers, chills. She reports no hemoptysis or shortness of breath. She states she has been using a nasal inhaler which is been helping. ROS All systems reviewed and are negative except as per history of present illness. Medications Home Meds Active Scripts Prednisone* (Prednisone*) 20 Mg Tab, 40 MG PO DAILY for 4 Days, TAB Prov:ZENA SANTANA PA-C 07/29/17 Hydrocodone/Acetaminophen ([place] 5-325 Tablet) 1 Each Tablet, 1 TAB PO Q6H Y for PAIN, #7 TAB Prov:ZENA SANTANA PA-C 07/29/17 Ondansetron (Ondansetron Odt) 4 Mg Tab.rapdis, 8 MG PO Q6H Y for NAUSEA AND/OR VOMITING, #30 TAB Prov:VONDA MCNALLY PA-C 07/12/17 Hydrocodone/Acetaminophen ([place] 5-325 Tablet) 1 Each Tablet, 1 TAB PO Q6H Y for PAIN, #30 TAB Prov:VONDA MCNALLY PA-C 07/12/17 Famotidine* (Pepcid*) 20 Mg Tablet, 20 MG PO DAILY, #20 TAB Prov:VONDA MCNALLY PA-C 07/12/17 Hydrocodone/Acetaminophen ([place] 5-325 Tablet) 1 Each Tablet, 1 TAB PO Q6H Y for PAIN, #20 TAB Prov:VONDA MCNALLY PA-C 07/12/17 Lorazepam* (Ativan*) 0.5 Mg Tablet, 0.5 MG PO Q8 for ANXIETY, #10 TAB Prov:DERIAN BLACKWOOD MD 07/03/17 Reported Medications Ergocalciferol (Vitamin D2) (VITAMIN D2) 2,000 Unit Tablet, 2000 UNIT PO, TAB 07/03/17 Levothyroxine Sodium* (Levothyroxine Sodium*) 150 Mcg Tablet, 300 MCG PO BEFORE BREAKFAST, #30 TAB 07/03/17 Allergies Allergies: Coded Allergies: Penicillins (Unverified Allergy, Unknown, rash, 07/03/17) clindamycin (Unverified Allergy, Unknown, rash, 07/03/17) PMhx/Soc History of Surgery: No Anesthesia Reaction: No Hx Neurological Disorder: No Hx Respiratory Disorders: No Hx Cardiac Disorders: No Hx Psychiatric Problems: No Hx Miscellaneous Medical Probl: No Hx Alcohol Use: No Hx Substance Use: No Hx Tobacco Use: No Smoking Status: Never smoker FmHx Noncontributory for chief complaint Physical Exam Vitals Vital Signs Date Time Temp Pulse Resp B/P Pulse Ox O2 Delivery O2 Flow Rate FiO2 08/28/17 07:16 99.0 74 18 150/70 99 Physical Exam GENERAL: The patient is well developed and appropriate for usual state of health in no apparent distress HEENT: Pupils equal, round, and reactive to light. EOMI. There is no scleral icterus. NECK: C-spine is soft and supple, there is no meningismus. There is no cervical lymphadenopathy. LUNGS: Clear to auscultation bilaterally. There are no rales, wheezes or rhonchi. HEART: Regular rate and rhythm, no murmurs, clicks, rubs or gallops. Procedures/MDM Patient was taken to a room, seen and examined Medical decision makin-year-old female presents with what appears to be an uncomplicated upper respiratory infection. At this time, patient shows no signs of sepsis, dehydration, pneumonia. Overall, patient is clinically well and appropriate for outpatient care. Departure Diagnosis: Primary Impression: URI (upper respiratory infection) Condition: Stable Patient Instructions: Preventing Common Respiratory Infections Additional Instructions: Return as needed VINNY KOROMA Aug 28, 2017 07:28
== END 2017-08-28 07:50 | disposition home or self-care (01) ==
LOC: FTE 07:14
DX: J06.9 Acute upper respiratory infection, unspecified (principal)
CPT/HCPCS: 99282

== ENCOUNTER 2017-10-13 15:40 | Emergency (ER) | END 2017-10-13 16:29 | disposition home or self-care (01) ==

== ENCOUNTER 2017-11-16 23:28 | Emergency (ER) | END 2017-11-17 01:16 | disposition home or self-care (01) ==

== ENCOUNTER 2018-03-09 08:28 | Emergency (ER) | END 2018-03-09 09:37 | disposition home or self-care (01) ==

== ENCOUNTER 2018-03-31 23:23 | Emergency (ER) | END 2018-04-01 01:46 | disposition home or self-care (01) ==

== ENCOUNTER 2018-06-24 23:10 | Emergency (ER) | END 2018-06-25 00:11 | disposition home or self-care (01) ==

== ENCOUNTER 2018-11-23 23:16 | Emergency (ER) | payer BC, MEDICARE, MEDICAID ==
[~2018-11-23] VITALS: Ht 170.2 cm; Wt 118.0 kg
[~2018-11-23 23:16] MED LIST changes: -ERGO2000 PO; -FAMO-96 PO; +FLUT9.9S NASAL; +HYDR-4011 PO; -HYDR-906 PO; -LEVO150T67 PO; +LEVO150T7 PO; +NAPR-985 PO; -ONDA4TAB14 PO
--- NOTE | 2018-11-23 23:50 | ERD ---
ER Documentation Chief Complaint Chief Complaint Oral rash. HPI 43-year-old female, employee at [employer] presents to the emergency department, complaining of painful white oral lesions in her mouth, she also reports erythematous, symmetrical plaques on the groin area, the patient believes that the lesions are caused by a yeast infection. She denies fevers, no chills, no other rashes. No medications taken at this time. ROS All systems reviewed and are negative except as per history of present illness. Medications Home Meds Active Scripts Nystatin (Nystatin) 100,000 Unit/1 Ml Oral.susp, 5 ML PO TID for 7 Days, OZ Swish and swallow Prov:HERBERT SCHUSTER MD 11/24/18 Nystatin-Triamcinolone* (Nystatin-Triamcinolone* Cream) 15 Gm Cream.gm., 1 APPLIC TOP BID for 7 Days, #2 TUB Prov:HERBERT SCHUSTER MD 11/24/18 Fluconazole* (Diflucan*) 150 Mg Tablet, 150 MG PO every week x 3 weeks, #3 TAB Prov:HERBERT SCHUSTER MD 11/24/18 Fluticasone Propionate (Flonase Allergy Relief) 9.9 Ml [place].susp, 1 SPRAY NASAL DAILY, #1 BOTTLE TO EACH NOSTRIL Prov:CATHY AMBROSE NP 06/24/18 Prednisone* (Prednisone*) 20 Mg Tab, 40 MG PO DAILY for 5 Days, #10 TAB Prov:QUIN ANDERSON PA-C 05/11/18 Hydrocodone/Acetaminophen ([place] 5-325 Tablet) 1 Each Tablet, 1 TAB PO Q6H PRN for PAIN, #10 TAB Prov:JULIA ASTUDILLO MD 04/01/18 Naproxen* (Naprosyn*) 500 Mg Tablet, 500 MG PO BID PRN for PAIN AND/OR INFLAMMATION, #30 TAB Prov:ZENA SANTANA PA-C 03/09/18 Lorazepam* (Ativan*) 0.5 Mg Tablet, 0.5 MG PO Q8 for ANXIETY, #10 TAB Prov:DERIAN BLACKWOOD MD 07/03/17 Reported Medications Levothyroxine Sodium* (Levothyroxine Sodium*) 150 Mcg Tablet, 300 MCG PO BEFORE BREAKFAST, #30 TAB 07/03/17 Allergies Allergies: Coded Allergies: Penicillins (Unverified Allergy, Unknown, rash, 05/11/18) clindamycin (Unverified Allergy, Unknown, rash, 05/11/18) PMhx/Soc History of Surgery: Yes (gastric bypass, cholecystectomy, sinus) Anesthesia Reaction: No Hx Neurological Disorder: No Hx Respiratory Disorders: No Hx Cardiac Disorders: No Hx Psychiatric Problems: No Hx Miscellaneous Medical Probl: Yes (hypothyroidism) Hx Alcohol Use: Yes (social) Hx Substance Use: No Hx Tobacco Use: No FmHx Family History: diabetes; No coronary disease Physical Exam Vitals Vital Signs Date Temp Pulse Resp B/P (MAP) Pulse Ox O2 O2 Flow FiO2 Time Delivery Rate 11/24/18 98.6 71 18 139/83 98 Room Air 00:22 (101) 11/24/18 98.6 72 18 141/79 98 00:00 (99) Physical Exam Patient alert, oriented, vital signs stable. HEENT: Normocephalic, atraumatic. EYES: PERRLA, EOMI, Sclera and conjunctiva appear normal. EARS: Canals clear, tympanic membranes WNL. THROAT: Normal oropharynx. Mouth: Whitish, reticular lesions in the mouth. NECK: Supple, No lymphadenopathy. Full ROM without pain or tenderness. HEART: RRR, no rubs, murmurs, clicks or gallops. LUNGS: Clear to auscultation. ABDOMEN: Soft, non-tender without masses or hepatosplenomegaly. EXTREMITIES: No edema bilaterally. BACK: Full ROM, no deformity, normal back exam NEURO: Cranial nerves grossly intact, no motor or sensory deficit Results 24 hrs Laboratory Tests Test 11/24/18 00:04 11/24/18 00:09 Bedside Urine pH (LAB) 6.0 Bedside Urine Protein (LAB) Negative Bedside Urine Glucose (UA) Negative Bedside Urine Ketones (LAB) Negative Bedside Urine Blood Negative Bedside Urine Nitrite (LAB) Negative Bedside Urine Leukocyte Esterase (L Negative Bedside Glucose 74 mg/dL Procedures/MDM Differential diagnosis include but not limited to: Oral infection bacterial/viral/fungal, parotitis, allergies, GERD. Less likely peritonsillar abscess, retropharyngeal abscess. No signs of upper respiratory obstruction Physical examination and clinical presentation consistent most likely with oral candidiasis. During the ED course the patient remained stable, fever resolved with medications given in the ER, no new complaints. Clinical impression discussed with patient who agrees with management. The patient is stable to be treated outpatient and will be discharged home with a Rx for antifungal medication. Some side effects of prescribed medications (headache, rash, nausea, vomiting, diarrhea, drowsiness, habituation, bleeding, hypertension, interactions with other medications) were reviewed. The patient was instructed to follow up with the primary care provider in the next 48h. If symptoms persist, worsen or new symptoms develop, then patient should return to the ED immediately. Disclaimer: Inadvertent spelling and grammatical errors are likely due to EHR/dictation software use and do not reflect on the overall quality of patient care. Also, please note that the electronic time recorded on this note does not necessarily reflect the actual time of the patient encounter. Departure Diagnosis: Primary Impression: Tere infection Condition: Stable Additional Instructions: Thank you very much for allowing us to participate in your care. Your health and safety is our top priority at [facility]. Call your primary care doctor TOMORROW for an appointment during the next 2-4 days and bring all the information and medications prescribed. Have prescriptions filled and follow precisely the directions on the label. If the symptoms get worse and your provider is unavailable, return to the Emergency Department immediately. HERBERT SCHUSTER MD Nov 23, 2018 23:50
[2018-11-24] VITALS: Ht 170.2 cm; Wt 118.0 kg
[2018-11-24] MEDS ORDERED: FLUC150T PO (00:16)
[2018-11-24] MEDS ORDERED: NYST15CR36 TOP (00:16)
[2018-11-24] MEDS ORDERED: NYST1000 PO (00:17)
[2018-11-24 00:22] VITALS: BP 139/83; PULSE 71; RESP 18
== END 2018-11-24 00:22 | disposition home or self-care (01) ==
LOC: FTE 23:16
DX: B37.0 Candidal stomatitis (principal); E03.9 Hypothyroidism, unspecified
CPT/HCPCS: 81003; 82962; 99283

== ENCOUNTER 2018-11-28 12:27 | Emergency (ER) | payer BC, MEDICARE, MEDICAID ==
[~2018-11-28] VITALS: Ht 165.1 cm; Wt 116.3 kg
[~2018-11-28 12:27] MED LIST changes: +FLUC150T PO; +NYST1000 PO; +NYST15CR36 TOP
[2018-11-28 13:16] VITALS: BP 116/80; PULSE 70; RESP 18; Ht 165.1 cm; Wt 116.3 kg
[2018-11-28] MEDS ORDERED: DIPHTH/TET/ACEL PERTUSS (ADULT) 0.5 ML VIAL IM* ONE (14:30)
--- NOTE | 2018-11-28 14:46 | ERD ---
ER Documentation Chief Complaint Chief Complaint stepped on sewing needle last night, needs tdap shot HPI 43-year-old female presenting after a puncture wound to the right foot. Patient states that last night she stepped on a needle at home that was on her carpet. It was completely removed however she is not up-to-date on tetanus and is requesting tetanus shot today's visit. She did not puncture through her shoe it was only her sock. Denies any continued bleeding or swelling to the affected area. Medical history of hypothyroidism. Surgical history gastric bypass, cholecystectomy, and tonsillectomy. Social history denies ROS All systems reviewed and are negative except as per history of present illness. Medications Home Meds Active Scripts Nystatin (Nystatin) 100,000 Unit/1 Ml Oral.susp, 5 ML PO TID for 7 Days, OZ Swish and swallow Prov:HERBERT SCHUSTER MD 11/24/18 Nystatin-Triamcinolone* (Nystatin-Triamcinolone* Cream) 15 Gm Cream.gm., 1 APPLIC TOP BID for 7 Days, #2 TUB Prov:HERBERT SCHUSTER MD 11/24/18 Fluconazole* (Diflucan*) 150 Mg Tablet, 150 MG PO every week x 3 weeks, #3 TAB Prov:HERBERT SHCUSTER MD 11/24/18 Fluticasone Propionate (Flonase Allergy Relief) 9.9 Ml [place].susp, 1 SPRAY NASAL DAILY, #1 BOTTLE TO EACH NOSTRIL Prov:CATHY AMBROSE DENTAL PROFESSIONAL 06/24/18 Prednisone* (Prednisone*) 20 Mg Tab, 40 MG PO DAILY for 5 Days, #10 TAB Prov:QUIN ANDERSON PA-C 05/11/18 Hydrocodone/Acetaminophen ([place] 5-325 Tablet) 1 Each Tablet, 1 TAB PO Q6H PRN for PAIN, #10 TAB Prov:UJLIA ASTUDILLO MD 04/01/18 Naproxen* (Naprosyn*) 500 Mg Tablet, 500 MG PO BID PRN for PAIN AND/OR INFLAMMATION, #30 TAB Prov:ZENA SANTANA PA-C 03/09/18 Lorazepam* (Ativan*) 0.5 Mg Tablet, 0.5 MG PO Q8 for ANXIETY, #10 TAB Prov:DERIAN BLACKWOOD MD 07/03/17 Reported Medications Levothyroxine Sodium* (Levothyroxine Sodium*) 150 Mcg Tablet, 300 MCG PO BEFORE BREAKFAST, #30 TAB 07/03/17 Allergies Allergies: Coded Allergies: Penicillins (Unverified Allergy, Unknown, rash, 05/11/18) clindamycin (Unverified Allergy, Unknown, rash, 05/11/18) PMhx/Soc History of Surgery: Yes (gastric bypass, cholecystectomy, sinus) Anesthesia Reaction: No Hx Neurological Disorder: No Hx Respiratory Disorders: No Hx Cardiac Disorders: No Hx Psychiatric Problems: No Hx Miscellaneous Medical Probl: Yes (hypothyroidism, cervical ca ) Hx Alcohol Use: Yes (social) Hx Substance Use: No Hx Tobacco Use: No Smoking Status: Never smoker FmHx Family History: No diabetes, No coronary disease, No other Physical Exam Vitals Vital Signs Date Temp Pulse Resp B/P (MAP) Pulse Ox O2 O2 Flow FiO2 Time Delivery Rate 11/28/18 98.8 70 18 116/80 100 13:16 (92) Physical Exam GENERAL: The patient is well-appearing, well-nourished, in no acute distress CHEST: Clear to auscultation bilaterally. There are no rales, wheezes or rhonchi. HEART: Regular rate and rhythm. No murmurs, clicks, rubs or gallops. EXTREMITIES: Equal pulses bilaterally. There is no peripheral clubbing, cyanosis or edema. No focal swelling or erythema. Full range of motion. NEUROLOGIC: Motor strength in all 4 extremities with 5 out of 5 strength. Sensation grossly intact. SKIN: Small puncture wound noted under third right toe. No surrounding erythema or fluctuance. Results 24 hrs Current Medications Medications Dose Sig/Lyssa Start Time Status Last (Trade) Ordered Route PRN Stop Time Admin Dose Reason Admin Diphtheria/ 0.5 ml ONCE ONCE 11/28/18 DC 11/28/18 Tetanus/Acell IM* 14:30 14:30 Pertussis 11/28/18 14:31 (Adacel) Procedures/MDM ER course: Tdap given ED. MDM: 43-year-old female presenting with puncture wound to the right toe. Patient does not require oral antibiotic intervention as this was not a wound sustained through her shoe. Patient is given tetanus in the ED. I have low suspicion for retained foreign body. Patient is discharged stricter precautions. Patient is told if symptoms change or worsen to return immediately to the ER. All questions answered at discharge Departure Diagnosis: Primary Impression: Puncture wound Condition: Stable Patient Instructions: Puncture Wound, Foot Referrals: Additional Instructions: FOLLOW UP WITH YOUR PRIMARY CARE PHYSICIAN TOMORROW.Return to this facility if you are not improving as expected. ZENA SANTANA PA-C Nov 28, 2018 14:46
== END 2018-11-28 14:52 | disposition home or self-care (01) ==
LOC: FTE 12:27
DX: S91.134A Puncture wound without foreign body of right lesser toe(s) without damage to nail, initial encounter (principal); E03.9 Hypothyroidism, unspecified; W27.3XXA Contact with needle (sewing), initial encounter; Y92.9 Unspecified place or not applicable; Z85.41 Personal history of malignant neoplasm of cervix uteri
CPT/HCPCS: 90471; 90715

== ENCOUNTER 2019-04-09 15:34 | Emergency (ER) | payer BC, MEDICARE, MEDICAID ==
[~2019-04-09] VITALS: Ht 170.2 cm; Wt 117.0 kg
[~2019-04-09 15:34] MED LIST changes: +FLUC100T PO; +MED4DP PO
[2019-04-09 15:36] VITALS: BP 130/73; PULSE 96; RESP 20; Ht 170.2 cm; Wt 117.0 kg
--- NOTE | 2019-04-09 16:06 | ERD ---
ER Documentation Chief Complaint Chief Complaint "itching bug bites" HPI 43-year-old female, presents emergency department, complaining of generalized itching after sustaining multiple insect bites yesterday at her pool. Otherwise, no signs of infection, no fever, no chills, no nausea or vomiting, no headache. ROS All systems reviewed and are negative except as per history of present illness. Medications Home Meds Active Scripts Methylprednisolone* (Medrol* DOSE PACK) 4 Mg/Dose-Pack Tab.ds.pk, 4 MG PO . DIRECTED, #1 PACKET Prov:QUIN ANDERSON PA-C 03/30/19 Fluconazole* (Diflucan*) 100 Mg Tablet, 100 MG PO DAILY, #15 TAB 2 tabs on day 1 then 1 tab daily thereafter for a total of 14 days of treatment Prov:QUIN ANDERSON PA-C 03/30/19 Nystatin (Nystatin) 100,000 Unit/1 Ml Oral.susp, 5 ML PO TID for 7 Days, OZ Swish and swallow Prov:HERBERT SCHUSTER MD 11/24/18 Nystatin-Triamcinolone* (Nystatin-Triamcinolone* Cream) 15 Gm Cream.gm., 1 APPLIC TOP BID for 7 Days, #2 TUB Prov:HERBERT SCHUSTER MD 11/24/18 Fluconazole* (Diflucan*) 150 Mg Tablet, 150 MG PO every week x 3 weeks, #3 TAB Prov:HERBERT SCHUSTER MD 11/24/18 Fluticasone Propionate (Flonase Allergy Relief) 9.9 Ml [place].susp, 1 SPRAY NASAL DAILY, #1 BOTTLE TO EACH NOSTRIL Prov:CATHY AMBROSE NP 06/24/18 Prednisone* (Prednisone*) 20 Mg Tab, 40 MG PO DAILY for 5 Days, #10 TAB Prov:QUIN ANDERSON PA-C 05/11/18 Hydrocodone/Acetaminophen (Viola 5-325 Tablet) 1 Each Tablet, 1 TAB PO Q6H PRN for PAIN, #10 TAB Prov:JULIA ASTUDILLO MD 04/01/18 Naproxen* (Naprosyn*) 500 Mg Tablet, 500 MG PO BID PRN for PAIN AND/OR INFLAMMATION, #30 TAB Prov:ZENA SANTANA PA-C 03/09/18 Lorazepam* (Ativan*) 0.5 Mg Tablet, 0.5 MG PO Q8 for ANXIETY, #10 TAB Prov:DERIAN BLACKWOOD MD 07/03/17 Reported Medications Levothyroxine Sodium* (Levothyroxine Sodium*) 150 Mcg Tablet, 300 MCG PO BEFORE BREAKFAST, #30 TAB 07/03/17 Allergies Allergies: Coded Allergies: Penicillins (Unverified Allergy, Unknown, rash, 05/11/18) clindamycin (Unverified Allergy, Unknown, rash, 05/11/18) PMhx/Soc History of Surgery: Yes (gastric bypass, cholecystectomy, sinus) Anesthesia Reaction: No Hx Neurological Disorder: No Hx Respiratory Disorders: No Hx Cardiac Disorders: No Hx Psychiatric Problems: No Hx Miscellaneous Medical Probl: Yes (hypothyroidism, cervical ca ) Hx Alcohol Use: Yes (social) Hx Substance Use: No Hx Tobacco Use: No Smoking Status: Never smoker Physical Exam Vitals Vital Signs Date Temp Pulse Resp B/P (MAP) Pulse Ox O2 O2 Flow FiO2 Time Delivery Rate 04/09/19 98.3 96 20 130/73 100 15:36 (92) Physical Exam Const: No acute distress Head: Atraumatic Eyes: Normal Conjunctiva ENT: Normal External Ears, Nose and Mouth. Neck: Full range of motion. No meningismus. Resp: Clear to auscultation bilaterally Cardio: Regular rate and rhythm, no murmurs Abd: Soft, non tender, non distended. Normal bowel sounds Skin: Multiple, noninfected insect bites in upper extremities. No petechiae or rashes Back: No midline or flank tenderness Ext: No cyanosis, or edema Neur: Awake and alert Psych: Normal Mood and Affect Results 24 hrs Current Medications Medications Dose Sig/Lyssa Start Time Status Last (Trade) Ordered Route PRN Stop Time Admin Dose Reason Admin Prednisone 40 mg ONCE ONCE 04/09/19 DC 04/09/19 (Prednisone) PO 16:30 04/09/19 16:19 16:31 Loratadine 10 mg ONCE ONCE 04/09/19 DC 04/09/19 (Claritin) PO 16:30 04/09/19 16:19 16:31 1 applic ONCE ONCE 04/09/19 DC Hydrocortison TOP 16:30 04/09/19 e 16:30 (Hydrocortiso ne 2.5% Oint) 1 applic ONCE ONCE 04/09/19 DC 04/09/19 Hydrocortison TOP 16:30 04/09/19 16:19 e 16:31 (Hydrocortiso ne 2.5% Oint) Procedures/MDM Vital signs stable, Differential diagnosis include but not limited to: Dermatitis, scabies, allergic reaction, cellulitis, erysipelas, shingles, abscess. Low suspicion for acute systemic infectious process. Physical examination and clinical presentation consistent most likely with insect bites without evidence of cellulitis or abscess formation. During the ED course the patient remained stable, no new complaints. Clinical impression discussed with mother who agrees with management. The patient is stable to be treated outpatient and will be discharged home. The patient was instructed to follow up with the primary care provider in the next 48h. If symptoms persist, worsen or new symptoms develop, then patient should return to the ED immediately. Instructions explained and given directly by me to the patient and relatives with acknowledgment and demonstrated understanding. Disclaimer: Inadvertent spelling and grammatical errors are likely due to EHR/dictation software use and do not reflect on the overall quality of patient care. Also, please note that the electronic time recorded on this note does not necessarily reflect the actual time of the patient encounter. Departure Diagnosis: Primary Impression: Insect bite Condition: Stable Additional Instructions: Thank you very much for allowing us to participate in your care. Your health and safety is our top priority at [facility]. The evaluation in the emergency department has been done to rule out an acute emergency. Chronic, [id number] conditions may have not been evaluated; therefore, you need to follow up with a primary care provider in the next 48h. If symptoms persist, worsen or new symptoms develop, then patient should return to the ED immediately. Call your primary care doctor TOMORROW for an appointment during the next 2-4 days and bring all the information provided. Have prescriptions filled and follow precisely the directions on the label. If the symptoms get worse and your provider is unavailable, return to the Emergency Department immediately. HERBERT SCHUSTER MD Apr 09, 2019 16:06
[2019-04-09] MEDS ORDERED: predniSONE 20 MG TAB PO ONE (16:30)
[2019-04-09] MEDS ORDERED: LORATADINE 10 MG TAB PO ONE (16:30)
[2019-04-09] MEDS ORDERED: HYDROCORTISONE 2.5% 28.35 GM OINT TOP ONE ×2 (16:30)
== END 2019-04-09 16:33 | disposition home or self-care (01) ==
LOC: FTE 15:34
DX: T14.8XXA Other injury of unspecified body region, initial encounter (principal); E03.9 Hypothyroidism, unspecified; W57.XXXA Bitten or stung by nonvenomous insect and other nonvenomous arthropods, initial encounter; Y92.34 Swimming pool (public) as the place of occurrence of the external cause; Z85.41 Personal history of malignant neoplasm of cervix uteri
CPT/HCPCS: 99283; J7512